=== PATIENT | female | born 1950 ===

== ENCOUNTER 2021-03-12 07:40 | Day surgery (SDC) | payer OTHER ==
[~2021-03-12 07:40] MED LIST: ATORVASTATIN CA10 MG PO; B12 ACTIVE1000 MCG PO; CALCIUM500 M2 PO; D3 + K2 DOTS 11 EACH PO; LEVO-T25 MCG PO; NEXIUM10 MG PO
[2021-03-12] MEDS ORDERED: NAPR500T14 PO (10:26)
[2021-03-12] MEDS ORDERED: MORGIDOX100 MG PO (10:26)
== END 2021-03-12 14:55 | disposition home or self-care (01) ==
LOC: CIR.AMB 07:40
PROVIDERS: ATTEND Obstetrics & Gynecology
DX: N84.0 Polyp of corpus uteri (principal); D25.0 Submucous leiomyoma of uterus; Z20.822 Contact with and (suspected) exposure to COVID-19